=== PATIENT | female | born 1995 | race Caucasian/White ===

== ENCOUNTER 2020-09-24 16:20 | Emergency (ER) | payer OTHER ==
[~2020-09-24 16:20] MED LIST: NORCO 5-325 TA1 EACH PO
[2020-09-24 18:22] LABS: BILIRUBIN NEGATIVE (NEGATIVE); BLOOD NEGATIVE Ery/uL (NEGATIVE); CLARITY CLEAR (CLEAR); COLOR YELLOW (YELLOW); GLUCOSE (U) NORMAL (NORMAL); LEUKOCYTES NEGATIVE Leu/uL (NEGATIVE); NITRITE NEGATIVE (NEGATIVE); PROTEIN NEGATIVE (NEGATIVE); SPECIFIC GRAVITY 1.025 (1.001-1.030); UROBILINOGEN 0.2 mg/dL (0.2-1.0)
[2020-09-24 18:29] LABS: BASOPHIL 0.6 % (0-2); EOSINOPHIL 2.7 % (0-5); HCT 39.2 % (37.0-47.0); HGB 12.7 g/dl (12.5-16.0); LYMPHOCYTE 33.4 % (15-48); MCH 30.5 pg (25.0-31.0); MCHC 32.4 g/dL (32.0-36.0); MPV 10.5 fL (6.0-9.5); NEUTROPHIL 55.1 % (41-80); NRBC 0; PLT 227 K/uL (150-400); RBC 4.17 M/uL (4.20-5.40); RDW 12.3 % (11.5-14.0); WBC 5.3 K/uL (4.0-10.5)
[2020-09-24 18:42] LABS: ALBUMIN 3.4 g/dL (3.4-5.0); BUN/CREAT RATIO (CALC) 18.3 RATIO; CREATININE 0.82 mg/dL (0.51-0.95); GLOBULIN (CALCULATION) 3.6 g/dL; POTASSIUM 3.7 mmol/L (3.5-5.1)
[2020-09-27 17:12] LABS: CHLAMYDIA TRACHOMATIS, NAA Negative (Negative); NEISSERIA GONORRHOEAE, NAA Negative (Negative)
== END 2020-09-24 21:08 | disposition home or self-care (01) ==
LOC: FER 16:20
PROVIDERS: Physician Assistant Medical
DX: R10.31 Right lower quadrant pain (principal); R11.0 Nausea; F17.290 Nicotine dependence, other tobacco product, uncomplicated
CPT/HCPCS: 36415; 80053; 81003; 85025; 87210; 87491; 87591; Q9967

== ENCOUNTER 2020-12-06 09:54 | Emergency (ER) | payer OTHER ==
[2020-12-06] MEDS ORDERED: NORCO 5-325 TA1 EACH PO (11:46)
== END 2020-12-06 12:25 | disposition home or self-care (01) ==
LOC: FER 09:54
DX: S62.326A Displaced fracture of shaft of fifth metacarpal bone, right hand, initial encounter for closed fracture (principal); W22.8XXA Striking against or struck by other objects, initial encounter; Y92.009 Unspecified place in unspecified non-institutional (private) residence as the place of occurrence of the external cause
CPT/HCPCS: 73130